=== PATIENT | female | born 1945 | race Caucasian/White ===

== ENCOUNTER 2016-04-16 10:48 | Outpatient (CLI) | payer MEDICARE, OTHER | END 2016-04-16 10:49 | disposition home or self-care (01) | DX: Z12.31 Encounter for screening mammogram for malignant neoplasm of breast (principal) ==

== ENCOUNTER 2017-05-31 11:34 | Outpatient (CLI) | payer MEDICARE, OTHER ==
--- NOTE | 2017-06-01 12:40 | Mammography Report ---
DIGITAL SCREENING MAMMOGRAM: 05/31/2017 CLINICAL INDICATION: A 71-year-old, for screening. COMPARISON: 03/2016, 03/2015, 08/2012, 08/2011, 02/2010. TECHNIQUE: Routine CC and MLO projections were obtained of the breasts. FINDINGS: Parenchymal tissue within both breasts is heterogeneously dense, which may lower the sensitivity of mammography; however, there are no dominant masses, suspicious microcalcifications, or secondary signs of malignancy. In comparison to the previous studies, there are no significant changes. ASSESSMENT: NO MAMMOGRAPHIC EVIDENCE OF MALIGNANCY. NO SIGNIFICANT INTERVAL CHANGES. RECOMMENDATION: Screening mammography is recommended annually. BIRADS category 1 - negative. STANDARD QUALIFYING STATEMENTS: 1. This examination was reviewed with the aid of Computed-Aided Detection (CAD). 2. A negative or benign imaging report should not delay biopsy if clinically suspicious findings are present. Consider surgical consultation if warranted. More than 5% of cancers are not identified by imaging. 3. Dense breasts may obscure an underlying neoplasm. TD: 06/01/2017 12:39
== END 2017-05-31 11:35 | disposition home or self-care (01) ==
LOC: DI.N 11:34
PROVIDERS: ATTEND Family Medicine
DX: Z12.31 Encounter for screening mammogram for malignant neoplasm of breast (principal)
CPT/HCPCS: 77067

== ENCOUNTER 2018-08-07 13:31 | Outpatient (CLI) | payer MEDICARE, OTHER ==
--- NOTE | 2018-08-08 09:01 | Mammography Report ---
Reason: SCREENING MAMMO Procedure Date: 08/07/2018 Accession Number: [id number] / [id number] Procedure: MGN - Screening Mammo Dig Bilat CPT Code: FULL RESULT: EXAM: Screening Mammo Dig Bilat DATE: 08/07/2018 1:51 PM CLINICAL HISTORY: Screening encounter. History of early menses. TECHNIQUE: (B) - Bilateral CC and MLO views were obtained. COMPARISON: 05/31/2017 through 09/07/2012. PARENCHYMAL PATTERN: (D) - The breast(s) demonstrate(s) heterogeneously dense fibroglandular parenchyma. FINDINGS: There are typically benign vascular calcifications. There are no suspicious masses, calcifications, or areas of distortion. IMPRESSION: Benign findings. BI-RADS category 2. RECOMMENDATION: (ANNUAL) - Recommend routine annual screening mammography. BI-RADS CATEGORY: (2) - Benign Findings. STANDARD QUALIFYING STATEMENTS: 1. This examination was not reviewed with the aid of Computer-Aided Detection (CAD). 2. A negative or benign imaging report should not preclude biopsy if clinically suspicious findings are present. 3. Dense breasts may obscure an underlying neoplasm. 4. This examination was reviewed without the aid of 3D breast imaging (tomosynthesis).
== END 2018-08-07 13:32 | disposition home or self-care (01) ==
LOC: DI.N 13:31
PROVIDERS: ATTEND Family Medicine
DX: Z12.31 Encounter for screening mammogram for malignant neoplasm of breast (principal)
CPT/HCPCS: 77067

== ENCOUNTER 2018-12-03 14:46 | Emergency (ER) | payer MEDICARE, OTHER ==
[2018-12-03] MEDS ORDERED: IPRATROPIUM/ALBUTEROL 3 ML NEB INH STA (15:01)
--- NOTE | 2018-12-03 15:02 | ED Physician Documentation ---
PD HPI DYSPNEA - Stated complaint Stated Complaint: COUGH/CHEST PRESSURE - Chief complaint Chief Complaint: Resp - History obtained from History obtained from: Patient - History of Present Illness Timing - onset: Other (She is been sick for about a week and a half with cough productive of green and yellow sputum, shortness of breath and low-grade fevers as well as difficulty breathing. She denies any chest pain, no pedal edema or calf pain. 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 - Present Medications Home Medications: Ambulatory Orders Medication Instructions Recorded Confirmed DULoxetine [Cymbalta] 20 mg PO DAILY 11/26/15 11/26/15 Estrogens, Conjugated [Premarin] 0.3125 mg PO DAILY 11/26/15 11/26/15 Hydrocodone/Acetaminophen [Vicodin 1 tab PO DAILY 11/26/15 11/26/15 5-300 mg Tablet] LORazepam [Ativan] 0.5 mg PO DAILY 11/26/15 11/26/15 Levothyroxine [Synthroid] 25 mcg PO DAILY 11/26/15 11/26/15 Losartan [Cozaar] 25 mg PO DAILY 11/26/15 11/26/15 Albuterol Sulf [Ventolin Hfa 1 - 2 puffs INH Q4HR PRN #1 inhaler 12/03/18 Inhaler] Cefdinir 300 mg PO BID #14 capsule 12/03/18 Doxycycline Hyclate 100 mg PO BID #14 capsule 12/03/18 guaiFENesin/CODEINE [Robitussin AC] 5 - 10 ml PO Q6H PRN #120 ml 12/03/18 predniSONE [Deltasone] 20 mg PO [id number] #21 tab 12/03/18 - Allergies Allergies/Adverse Reactions: Allergies Allergy/AdvReac Type Severity Reaction Status Date / Time No Known Drug Allergies Allergy Verified 12/03/18 14:50 - Social History Does the pt smoke?: No Smoking Status: Never smoker Does the pt drink ETOH?: No Does the pt have substance abuse?: No PD ED PE NORMAL - Vitals Vital signs reviewed: Yes - General General: Alert and oriented X 3, No acute distress - HEENT HEENT: PERRL, EOMI - Neck Neck: Supple, no meningeal sign, No bony TTP - Cardiac Cardiac: RRR, No murmur - Respiratory Respiratory: Other (Loud rhonchi and wheezing, minimally labored) - Abdomen Abdomen: Non tender - Derm Derm: Normal color, Warm and dry - Extremities Extremities: No edema, No calf tenderness / cord - Neuro Neuro: Alert and oriented X 3, Normal speech Results - Vitals Vitals: Vital Signs - 24 hr 12/03/18 12/03/18 12/03/18 14:50 15:01 15:09 Temperature 36.8 C 36.9 C Heart Rate 94 84 96 Respiratory 18 20 22 Rate Blood Pressure 151/54 H 156/88 H O2 Saturation 92 93 12/03/18 15:52 Temperature Heart Rate 85 Respiratory 18 Rate Blood Pressure 134/74 H O2 Saturation 90 L Oxygen O2 Source Room air - Rads (name of study) 2v chest Radiology: EMP read contemporaneously (mild multifocal PNA) PD MEDICAL DECISION MAKING - ED course ED course: 73-year-old woman presents with a respiratory illness, found to have mild multifocal pneumonia on chest x-ray. Feeling better after a DuoNeb here and was treated with Rocephin and doxycycline here pending outpatient prescriptions. Also steroids. Departure - Departure Clinical Impression: Bronchitis Condition: Good Instructions: ED Bronchitis Asthmatic Prescriptions: Albuterol Sulf [Ventolin Hfa Inhaler] 1 - 2 puffs INH Q4HR PRN #1 inhaler PRN Reason: Shortness Of Air/Wheezing Cefdinir 300 mg PO BID #14 capsule Doxycycline Hyclate 100 mg PO BID #14 capsule guaiFENesin/CODEINE [Robitussin AC] 5 - 10 ml PO Q6H PRN #120 ml PRN Reason: Cough predniSONE [Deltasone] 20 mg PO [id number] #21 tab Comments: Return if worse, or if you feel more short of breath or running high fevers. Follow-up with your doctor midweek for recheck.
--- NOTE | 2018-12-03 16:29 | XRAY Report ---
Reason: cough dyspnea Procedure Date: 12/03/2018 Accession Number: [id number] / [id number] Procedure: XR - Chest 2 View X-Ray CPT Code: 85995 FULL RESULT: EXAM: CHEST RADIOGRAPHY EXAM DATE: 12/03/2018 03:09 PM. CLINICAL HISTORY: Cough dyspnea. COMPARISON: CHEST 2 VIEW PA/LAT 11/26/2015 10:39 AM. TECHNIQUE: 2 views. FINDINGS: LUNGS: New bibasilar and right apical opacities. PLEURA: No significant pleural effusion. No clinically significant pneumothorax. MEDIASTINUM: Heart and mediastinal contours are notable for aortic calcification. The cardiac silhouette is normal in size. BONES: No suspicious osseous lesions. There are calcified intraocular bodies again within the right glenohumeral joint. Surgical clips are present in the right upper quadrant of the abdomen in the expected location of the gallbladder fossa which suggest prior cholecystectomy. IMPRESSION: 1. New bibasilar and right apical opacities. Correlate clinically for multifocal pneumonia. RADIA
[2018-12-03] MEDS ORDERED: DOXYCYCLINE 100 MG TABLET PO STA (16:35)
[2018-12-03] MEDS ORDERED: LIDOCAINE 1% 2 ML VIAL MC ONE (16:35)
[2018-12-03] MEDS ORDERED: predniSONE 20 MG TABLET PO STA (16:35)
[2018-12-03] MEDS ORDERED: cefTRIAXone 1 GM VIAL IM STA (16:35)
[2018-12-03 16:36] VITALS: BP 103/63
== END 2018-12-03 16:54 | disposition home or self-care (01) ==
LOC: ED 14:46
DX: J18.9 Pneumonia, unspecified organism (principal); J40 Bronchitis, not specified as acute or chronic; I10 Essential (primary) hypertension
CPT/HCPCS: 71046; 94640; 96372; 99283; A9270; J7512

== ENCOUNTER 2018-12-14 11:45 | Outpatient (CLI) | payer MEDICARE, OTHER ==
--- NOTE | 2018-12-14 20:11 | XRAY Report ---
Reason: PNEUMONIA Procedure Date: 12/14/2018 Accession Number: [id number] / [id number] Procedure: XR - Chest 2 View X-Ray CPT Code: 35713 FULL RESULT: EXAM: CHEST RADIOGRAPHY EXAM DATE: 12/14/2018 12:52 PM. CLINICAL HISTORY: PNEUMONIA. COMPARISON: CHEST 2 VIEW 12/03/2018 3:03 PM CHEST 2 VIEW PA/LAT 11/26/2015 10:39 AM. TECHNIQUE: 2 views. FINDINGS: Lungs/Pleura: Improved bibasilar aeration, now clear on the right with residual changes on the left. Residual nodular increased density right apex. Suggest follow-up to complete radiographic clearing. Mediastinum: Heart and mediastinal contours are stable. Other: Surgical clips right upper quadrant. Degenerative change in the shoulder with possible calcified loose bodies on the right. IMPRESSION: Improved chest x-ray since 12/03/2018 with residual changes still present. Follow-up to complete radiographic clearing suggested. RADIA
== END 2018-12-14 11:46 | disposition home or self-care (01) ==
LOC: DI 11:45
PROVIDERS: ATTEND Family Medicine
DX: J18.8 Other pneumonia, unspecified organism (principal)
CPT/HCPCS: 71046

== ENCOUNTER 2020-05-26 11:11 | Outpatient (CLI) | payer MEDICARE, OTHER ==
--- NOTE | 2020-05-27 08:12 | Mammography Report ---
BILATERAL DIGITAL SCREENING MAMMOGRAM 3D/2D: 05/26/2020 CLINICAL: Routine screening. Comparison is made to exams dated: 08/07/2018 mammogram, 05/31/2017 mammogram, 04/16/2016 mammogram, 11/2015 mammogram, 09/07/2012 mammogram, and 08/30/2011 mammogram - [facility]. There are scattered fibroglandular elements in both breasts. No significant masses, calcifications, or other findings are seen in either breast. There has been no significant interval change. IMPRESSION: NEGATIVE There is no mammographic evidence of malignancy. A 1 year screening mammogram is recommended. This exam was interpreted at Station ID: [id number]. NOTE: For mammograms, a report in lay terms will be sent to the patient. Approximately 15% of breast malignancies will not be visualized mammographically. In the management of a palpable breast mass, a negative mammogram must not discourage biopsy of a clinically suspicious lesion. Electronically Signed By: Ceasar garcia/yordy:05/26/2020 15:14:09 ACR BI-RADS Category 1: Negative 3341F PARENCHYMAL PATTERN: (A) - The breast(s) demonstrate(s) scattered fibroglandular densities. BI-RADS CATEGORY: (1) - 1 RECOMMENDATION: (ANNUAL) - Recommend routine annual screening mammography. [id number] 1 year screening LATERALITY: (B)
== END 2020-05-26 11:12 | disposition home or self-care (01) ==
LOC: DI.N 11:11
PROVIDERS: ATTEND Family Medicine
DX: Z12.31 Encounter for screening mammogram for malignant neoplasm of breast (principal)

== ENCOUNTER 2020-11-04 13:51 | Outpatient (CLI) | payer MEDICARE, OTHER | END 2020-11-04 13:52 | disposition home or self-care (01) | LOC: COV 13:51 | PROVIDERS: ATTEND Family Medicine | DX: Z20.822 Contact with and (suspected) exposure to COVID-19 (principal) ==

== ENCOUNTER 2021-11-15 11:17 | Emergency (ER) | payer MEDICARE, OTHER ==
[2021-11-15 12:14] VITALS: BP 130/101
--- NOTE | 2021-11-15 12:38 | XRAY Report ---
PROCEDURE: Chest 1 View X-Ray INDICATIONS: soa TECHNIQUE: One view of the chest was acquired. COMPARISON: Chest x-ray 12/14/2018 FINDINGS: Surgical changes and devices: None. Lungs and pleura: No pleural effusions or pneumothorax. Lungs are clear. Mediastinum: Mediastinal contours appear normal. Heart size is normal. Bones and chest wall: No suspicious bony lesions. Overlying soft tissues appear unremarkable. IMPRESSION: No acute pulmonary process. Reviewed by: Terri Perez MD on 11/15/2021 12:37 PM PDT Approved by: Terri Perez MD on 11/15/2021 12:37 PM PDT Station ID: [id number]
[2021-11-15 13:13] LABS: B. PARAPERTUSSIS- RESP PCR PAN NOT DETECTED; B. PERTUSSIS- RESP PCR PANEL NOT DETECTED; C. PNEUMONIAE- RESP PCR PANEL NOT DETECTED; CORONAVIRUS 229E-RESP PCR NOT DETECTED; CORONAVIRUS HKU1-RESP PCR NOT DETECTED; CORONAVIRUS NL63-RESP PCR NOT DETECTED; CORONAVIRUS OC43-RESP PCR NOT DETECTED; HUMAN METAPNEUMOVIRUS NOT DETECTED; INFLUENZA A- RESP PCR PANEL NOT DETECTED; INFLUENZA B - RESP PCR PANEL NOT DETECTED; M. PNEUMONIAE- RESP PCR PANEL NOT DETECTED; PARAINFLUENZA VIRUS 1 NOT DETECTED; PARAINFLUENZA VIRUS 2 NOT DETECTED; PARAINFLUENZA VIRUS 3 NOT DETECTED; PARAINFLUENZA VIRUS 4 NOT DETECTED; RHINOVIRUS/ENTEROVIRUS DETECTED; RSV- RESP PCR PANEL NOT DETECTED; SARS-CoV-2 -RESP PCR PANEL NOT DETECTED
[2021-11-15] MEDS ORDERED: predniSONE 20 MG TABLET PO STA (13:48)
[2021-11-15] MEDS ORDERED: IPRATROPIUM/ALBUTEROL 3 ML NEB INH STA (13:48)
--- NOTE | 2021-11-15 13:56 | ED Physician Documentation ---
PD HPI URI - Stated complaint Stated Complaint: LUNG CONGESTION/WEAKNESS - Chief complaint Chief Complaint: Resp - History obtained from History obtained from: Patient - History of Present Illness Timing - onset: How many days ago (3-4) Timing duration: Days Timing details: Gradual onset Pain level max: 3 Pain level now: 3 Associated symptoms: Nasal congestion, Rhinorrhea, Dry cough, Dyspnea (wheezing). 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 - Present Medications Home Medications: Ambulatory Orders Medication Instructions Recorded Confirmed DULoxetine [Cymbalta] 20 mg PO DAILY 11/26/15 11/26/15 Estrogens, Conjugated [Premarin] 0.3125 mg PO DAILY 11/26/15 11/26/15 Hydrocodone/Acetaminophen [Vicodin 1 tab PO DAILY 11/26/15 11/26/15 5-300 mg Tablet] LORazepam [Ativan] 0.5 mg PO DAILY 11/26/15 11/26/15 Levothyroxine [Synthroid] 25 mcg PO DAILY 11/26/15 11/26/15 Losartan [Cozaar] 25 mg PO DAILY 11/26/15 11/26/15 Albuterol Sulf [Ventolin Hfa 1 - 2 puffs INH Q4HR PRN #1 inhaler 12/03/18 Inhaler] Cefdinir 300 mg PO BID #14 capsule 12/03/18 Doxycycline Hyclate 100 mg PO BID #14 capsule 12/03/18 guaiFENesin/CODEINE [Robitussin AC] 5 - 10 ml PO Q6H PRN #120 ml 12/03/18 predniSONE [Deltasone] 20 mg PO [id number] #21 tab 12/03/18 Albuterol Sulf [Ventolin Hfa 1 - 2 puffs INH Q4HR PRN #1 each 11/15/21 Inhaler] Benzonatate [Tessalon] 200 mg PO TID PRN #30 cap 11/15/21 predniSONE [Deltasone] 40 mg PO DAILY #10 tablet 11/15/21 - Allergies Allergies/Adverse Reactions: Allergies Allergy/AdvReac Type Severity Reaction Status Date / Time No Known Drug Allergies Allergy Verified 11/15/21 12:09 - Social History Does the pt smoke?: No Smoking Status: Never smoker Does the pt drink ETOH?: No Does the pt have substance abuse?: No PD ED PE NORMAL - Vitals Vital signs reviewed: Yes - General General: Alert and oriented X 3, No acute distress - HEENT HEENT: PERRL, Ears normal, Moist mucous membranes, Pharynx benign - Neck Neck: Supple, no meningeal sign - Cardiac Cardiac: RRR - Respiratory Respiratory: No respiratory distress, Other (mild wheezing B) - Abdomen Abdomen: Soft, Non tender, Non distended - Derm Derm: Warm and dry - Extremities Extremities: No edema - Neuro Neuro: Alert and oriented X 3 - Psych Psych: Normal mood, Normal affect Results - Vitals Vitals: Vital Signs - 24 hr 11/15/21 11/15/21 12:09 14:10 Temperature 36.6 C Heart Rate 84 78 Respiratory 20 23 Rate Blood Pressure 130/101 H O2 Saturation 94 Oxygen O2 Source Room air - Labs Labs: Laboratory Tests 11/15/21 12:15 Nasal Adenovirus (PCR) NOT DETECTED Nasal B. parapertussis DNA (PCR) NOT DETECTED Nasal Coronavir 229E PCR NOT DETECTED Nasal Coronavir HKU1 PCR NOT DETECTED Nasal Coronavir NL63 PCR NOT DETECTED Nasal Coronavir OC43 PCR NOT DETECTED Nasal Enterovir/Rhinovir PCR DETECTED A Nasal Influenza B PCR NOT DETECTED Nasal Influenza A PCR NOT DETECTED Nasal Parainfluen 1 PCR NOT DETECTED Nasal Parainfluen 2 PCR NOT DETECTED Nasal Parainfluen 3 PCR NOT DETECTED Nasal Parainfluen 4 PCR NOT DETECTED Nasal RSV (PCR) NOT DETECTED Nasal B.pertussis DNA PCR NOT DETECTED Nasal C.pneumoniae (PCR) NOT DETECTED Jimmy Human Metapneumo PCR NOT DETECTED Nasal M.pneumoniae (PCR) NOT DETECTED Nasal SARS-CoV-2 (PCR) NOT DETECTED - Rads (name of study) Chest x-ray Radiology: Final report received, EMP read contemporaneously, See rad report (No acute abnormality) PD MEDICAL DECISION MAKING - ED course Complexity details: reviewed results, re-evaluated patient, considered differential, d/w patient ED course: Patient is well-appearing, nontoxic. Afebrile. No hypoxia. No respiratory distress. Feels better after nebulizer treatment. Will place on steroids for home. Will prescribe cough medication as well. Patient is positive for rhinovirus. No indication for antibiotics. Patient counseled regarding signs and symptoms for which I believe and urgent re-evaluation would be necessary. Patient with good understanding of and agreement to plan and is comfortable going home at this time This document was made in part using voice recognition software. While efforts are made to proofread this document, sound alike and grammatical errors may occur. Departure - Departure Disposition: Home, Self Care Clinical Impression: Rhinovirus Acute asthma exacerbation Qualifiers: Asthma severity: unspecified severity Asthma persistence: unspecified Qualified Code(s): J45.901 - Unspecified asthma with (acute) exacerbation Condition: Good Instructions: ED Viral Syndrome Follow-Up: Kevin David MD [Primary Care Provider] - Within 1 week Prescriptions: Albuterol Sulf [Ventolin Hfa Inhaler] 1 - 2 puffs INH Q4HR PRN #1 each PRN Reason: Shortness Of Air/Wheezing predniSONE [Deltasone] 40 mg PO DAILY #10 tablet Benzonatate [Tessalon] 200 mg PO TID PRN #30 cap PRN Reason: Cough Comments: Your prescriptions were sent to [facility] in [place]. Please follow-up with your doctor for further care. You have tested positive for rhinovirus today. There is no evidence of pneumonia. You can use Motrin or Tylenol as needed for pain at home. Return if you worsen. Please use a spacer with your inhaler. Discharge Date/Time: 11/15/21 14:16
== END 2021-11-15 14:16 | disposition home or self-care (01) ==
LOC: ED 11:17
DX: J45.901 Unspecified asthma with (acute) exacerbation (principal); B34.8 Other viral infections of unspecified site; I10 Essential (primary) hypertension; Z20.822 Contact with and (suspected) exposure to COVID-19
CPT/HCPCS: 71045; 87633; 94640; 94664; 99282; 99284; J7512

== ENCOUNTER 2022-05-06 10:34 | Outpatient (CLI) | payer MEDICARE, OTHER ==
--- NOTE | 2022-05-07 10:43 | Mammography Report ---
BILATERAL DIGITAL SCREENING MAMMOGRAM 3D/2D: 05/06/2022 CLINICAL: Routine screening. Comparison is made to exams dated: 05/26/2020 mammogram, 08/07/2018 mammogram, 05/31/2017 mammogram, and 04/16/2016 mammogram - [facility]. There are scattered areas of fibroglandular density in both breasts (category b / 25%-50% glandular t issue). There are benign vascular calcifications in both breasts. No significant masses, calcifications, or other findings are seen in either breast. There has been no significant interval change. IMPRESSION: BENIGN There is no mammographic evidence of malignancy. A 1 year screening mammogram is recommended. Based on the Tyrer Cuzick model (a risk assessment model) the patients lifetime risk is 2.3% and her 10 year risk is 0.0%. According to the ACR, ACS, and NCCN guidelines, an annual breast MRI exam deena g with mammogram is recommended if the patients lifetime risk is 20% or greater. This exam was interpreted at Station ID: [id number]. NOTE: For mammograms, a report in lay terms will be sent to the patient. Approximately 15% of breast malignancies will not be visualized mammographically. In the management of a palpable breast mass, a negative mammogram must not discourage biopsy of a clinically suspicious lesion. Electronically Signed By: Mau purvis/yordy:05/06/2022 12:27:55 letter sent: No_Letter ACR BI-RADS Category 2: Benign Finding(s) 3342F PARENCHYMAL PATTERN: (A) - The breast(s) demonstrate(s) scattered fibroglandular densities. BI-RADS CATEGORY: (2) - 2 Mammogram [id number] 1 year screening LATERALITY: (B)
== END 2022-05-06 10:35 | disposition home or self-care (01) ==
LOC: DI.N 10:34
PROVIDERS: ATTEND Family Medicine
DX: Z12.31 Encounter for screening mammogram for malignant neoplasm of breast (principal)

== ENCOUNTER 2023-07-27 11:11 | Outpatient (CLI) | payer MEDICARE, OTHER ==
--- NOTE | 2023-07-27 17:54 | XRAY Report ---
PROCEDURE: Skull 1-3V INDICATIONS: SPONTANEOUS ECCHYMOSES TECHNIQUE: 3 view(s) of the skull acquired. COMPARISON: None FINDINGS: Bones: No fractures. No suspicious bony lesions. Visualized sinuses appear clear. Soft tissues: No soft tissue calcifications. No suspicious soft tissue densities. IMPRESSION: No visualized acute fracture or dislocation. However, occult injury cannot be excluded. Recommend mckenna rt interval imaging follow-up in 7-10 days as clinically indicated for additional evaluation. Reviewed by: Terri Perez MD on 07/27/2023 5:53 PM PDT Approved by: Terri Perez MD on 07/27/2023 5:53 PM PDT Station ID: [id number]
--- NOTE | 2023-07-28 10:23 | Mammography Report ---
BILATERAL DIGITAL SCREENING MAMMOGRAM 3D/2D: 07/27/2023 CLINICAL: Routine screening. Comparison is made to exams dated: 05/06/2022 mammogram, 05/26/2020 mammogram, 08/07/2018 mammogram, 05/22 mammogram, 04/16/2016 mammogram, and 04/02/2015 mammogram - [facility]. Both breasts are heterogeneously dense, which may obscure small masses (category c / 51-75% glandular tissue). There are benign vascular calcifications in both breasts. No significant masses, calcifications, or other findings are seen in either breast. There has been no significant interval change. IMPRESSION: BENIGN There is no mammographic evidence of malignancy. A 1 year screening mammogram is recommended. Based on the Tyrer Cuzick model (a risk assessment model) the patient's lifetime risk is 3.2% and her 10 year risk is 0.0%. According to the ACR, ACS, and NCCN guidelines, an annual breast MRI exam deena g with mammogram is recommended if the patient's lifetime risk is 20% or greater. This exam was interpreted at Station ID: [id number]. NOTE: For mammograms, a report in lay terms will be sent to the patient. Approximately 15% of breast malignancies will not be visualized mammographically. In the management of a palpable breast mass, a negative mammogram must not discourage biopsy of a clinically suspicious lesion. Electronically Signed By: Roman collins/yordy:07/27/2023 12:03:47 letter sent: No_Letter ACR BI-RADS Category 2: Benign Finding(s) 3342F PARENCHYMAL PATTERN: (D) - The breast(s) demonstrate(s) heterogeneously dense fibroglandular raheel niño. BI-RADS CATEGORY: (2) - 2 RECOMMENDATION: (ANNUAL) - Recommend routine annual screening mammography. [id number] 1 year screening LATERALITY: (B)
== END 2023-07-27 11:12 | disposition home or self-care (01) ==
LOC: DI.N 11:11
PROVIDERS: ATTEND Family Medicine
DX: Z12.31 Encounter for screening mammogram for malignant neoplasm of breast (principal); R92.333 Mammographic heterogeneous density, bilateral breasts; R92.1 Mammographic calcification found on diagnostic imaging of breast; R23.3 Spontaneous ecchymoses